=== PATIENT | male | born 1995 | race Caucasian/White ===

== ENCOUNTER 2018-11-23 20:45 | Emergency (ER) | payer OTHER, BC ==
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
[2018-11-23 20:50] VITALS: BP 122/87
== END 2018-11-23 21:15 | disposition home or self-care (01) ==
LOC: ER 20:59
DX: T75.1XXA Unspecified effects of drowning and nonfatal submersion, initial encounter (principal)
CPT/HCPCS: 99281